=== PATIENT | male | born 1975 | race Caucasian/White ===

== ENCOUNTER 2019-11-06 15:02 | Outpatient (CLI) | payer OTHER ==
[2019-11-06] MEDS ORDERED: [UNRECOGNIZED DRUG - REMARK] (15:39)
== END 2019-11-06 23:59 | disposition home or self-care (01) ==
LOC: STAR 15:02
PROVIDERS: ATTEND Orthopaedic Surgery
DX: Z02.9 Encounter for administrative examinations, unspecified (principal)

== ENCOUNTER 2019-11-18 08:12 | Day surgery (SDC) | payer OTHER ==
[~2019-11-18] VITALS: Ht 175.3 cm; Wt 66.7 kg
[~2019-11-18 08:12] MED LIST: LIDOCAINE/PF 1%-EPI 1:200K, 30 ML ONE; [UNRECOGNIZED DRUG - REMARK]
[2019-11-18 08:46] VITALS: BP 120/85
[2019-11-18] MEDS ORDERED: LACTATED RINGERS 1,000 ML IV SCH (08:49)
[2019-11-18] MEDS ORDERED: FENTANYL PF 250 MCG/5ML ONE (09:00)
[2019-11-18] MEDS ORDERED: MIDAZOLAM 1 MG/ML, 2ML ONE (09:00)
[2019-11-18] MEDS ORDERED: CEFAZOLIN 1,000 MG ONE (09:02)
[2019-11-18] MEDS ORDERED: ROCURONIUM 10MG/ML,5ML ONE (09:02)
[2019-11-18] MEDS ORDERED: ROPIvacaine/PF 0.5%, 30 ML ONE (09:02)
[2019-11-18] MEDS ORDERED: DEXAMETHASONE 4 MG/ML, 1ML ONE (09:02)
[2019-11-18] MEDS ORDERED: LIDOCAINE-MPF 2% ,5ML ONE (09:02)
[2019-11-18] MEDS ORDERED: ONDANSETRON 2MG/ML, 2ML ONE (09:02)
[2019-11-18] MEDS ORDERED: PROPOFOL 10 MG/ML, 20ML ONE (09:02)
[2019-11-18] MEDS ORDERED: CLINDAMYCIN 150 MG/ML, 6ML ONE (09:35)
[2019-11-18] MEDS ORDERED: SUGAMMADEX 200 MG/2 ML IVPush ONE (10:01)
[2019-11-18] MEDS ORDERED: HYDROmorphone 2 MG/ML, 1ML IVPush PRN (11:00)
[2019-11-18] MEDS ORDERED: FENTANYL PF 100 MCG/2ML IV PRN (11:00)
[2019-11-18] MEDS ORDERED: ACETAMINOPHEN 325 MG TABLET PO PRN (11:00)
[2019-11-18] MEDS ORDERED: MEPERIDINE/PF 25MG/ML,1ML IVPush PRN (11:00)
[2019-11-18] MEDS ORDERED: PROMETHAZINE 25 MG/ML, 1ML IV PRN (11:00)
[2019-11-18] MEDS ORDERED: hydrALAzine 20 MG/ML, 1ML IV PRN (11:00)
[2019-11-18] MEDS ORDERED: OXYcodone 5 MG/5 ML ORAL.SOL UDC PO PRN (11:00)
[2019-11-18] MEDS ORDERED: KETOROLAC 30 MG/1 ML ONE (11:21)
[2019-11-18] MEDS ORDERED: KETOROLAC 30 MG/1 ML IVPush ONE (11:30)
== END 2019-11-18 13:25 | disposition home or self-care (01) ==
LOC: OUT 08:12
PROVIDERS: ATTEND Orthopaedic Surgery
DX: S43.431A Superior glenoid labrum lesion of right shoulder, initial encounter (principal); M75.21 Bicipital tendinitis, right shoulder; M75.41 Impingement syndrome of right shoulder; M75.01 Adhesive capsulitis of right shoulder; M65.811 Other synovitis and tenosynovitis, right shoulder; Z79.891 Long term (current) use of opiate analgesic; Z87.891 Personal history of nicotine dependence; X58.XXXA Exposure to other specified factors, initial encounter; Y93.9 Activity, unspecified; Y92.89 Other specified places as the place of occurrence of the external cause; Y99.8 Other external cause status
CPT/HCPCS: 23430; 29822; 29826; 64415; C1713; J0690; J1100; J1885; J2250; J2405; J2704; J2795; J3010; J3490; J7120

== ENCOUNTER → 2020-07-23 | Outpatient (CLI) | payer OTHER ==
[~2020-07-23] MED LIST changes: +CEFAZOLIN 1,000 MG ONE; +DEXAMETHASONE 4 MG/ML, 1ML ONE; +FENTANYL PF 250 MCG/5ML ONE; +GLYCOPYRROLATE 0.2MG/1ML, 5ML ONE; -LIDOCAINE/PF 1%-EPI 1:200K, 30 ML ONE; +MIDAZOLAM 1 MG/ML, 2ML ONE; +NEOSTIGMINE 1 MG/ML, 10ML ONE; +ONDANSETRON 2MG/ML, 2ML ONE; +PROPOFOL 10 MG/ML, 20ML ONE; +ROCURONIUM 10MG/ML,5ML ONE; +SUCCINYLCHOLINE 20 MG/ML, 10ML ONE
== END | disposition home or self-care (01) ==
LOC: STAR 12:12
PROVIDERS: ATTEND Orthopaedic Surgery
DX: Z01.812 Encounter for preprocedural laboratory examination (principal); Z20.828 Contact with and (suspected) exposure to other viral communicable diseases; M25.571 Pain in right ankle and joints of right foot
CPT/HCPCS: 36415; 87635

== ENCOUNTER 2020-07-27 08:08 | Day surgery (SDC) | payer OTHER ==
[~2020-07-27] VITALS: Ht 175.3 cm; Wt 71.4 kg
[~2020-07-27 08:08] MED LIST changes: -CEFAZOLIN 1,000 MG ONE; -DEXAMETHASONE 4 MG/ML, 1ML ONE; -FENTANYL PF 250 MCG/5ML ONE; -GLYCOPYRROLATE 0.2MG/1ML, 5ML ONE; -MIDAZOLAM 1 MG/ML, 2ML ONE; -NEOSTIGMINE 1 MG/ML, 10ML ONE; -ONDANSETRON 2MG/ML, 2ML ONE; -PROPOFOL 10 MG/ML, 20ML ONE; -ROCURONIUM 10MG/ML,5ML ONE; -SUCCINYLCHOLINE 20 MG/ML, 10ML ONE
[2020-07-27 08:30] VITALS: BP 117/80
[2020-07-27] MEDS ORDERED: CHLORHEXIDINE 15 ML UDC MM STA (08:31)
[2020-07-27] MEDS ORDERED: LACTATED RINGERS 1,000 ML IV SCH (08:31)
[2020-07-27] MEDS ORDERED: MUPIROCIN OINT 2%, 22GM ONE (09:27)
[2020-07-27] MEDS ORDERED: LIDOCAINE-MPF 1%, 5ML ONE (09:27)
[2020-07-27] MEDS ORDERED: OXYMETAZOLINE NASAL SPRAY 0.05%,30ML ONE (09:27)
[2020-07-27] MEDS ORDERED: DEXAMETHASONE 4 MG/ML, 1ML ONE (09:52)
[2020-07-27] MEDS ORDERED: ONDANSETRON 2MG/ML, 2ML ONE (09:52)
[2020-07-27] MEDS ORDERED: FENTANYL PF 250 MCG/5ML ONE (09:52)
[2020-07-27] MEDS ORDERED: PROPOFOL 10 MG/ML, 20ML ONE (09:52)
[2020-07-27] MEDS ORDERED: MIDAZOLAM 1 MG/ML, 5ML ONE (09:52)
[2020-07-27] MEDS ORDERED: ROCURONIUM 10 MG/ML,10ML ONE (09:52)
[2020-07-27] MEDS ORDERED: SUCCINYLCHOLINE 20 MG/ML, 10ML ONE (09:52)
[2020-07-27] MEDS ORDERED: MEPERIDINE/PF 25MG/0.5ML IVPush PRN (10:30)
[2020-07-27] MEDS ORDERED: KETOROLAC 30 MG/1 ML IV PRN (10:30)
[2020-07-27] MEDS ORDERED: FENTANYL PF 100 MCG/2ML IV PRN (10:30)
[2020-07-27] MEDS ORDERED: ACETAMINOPHEN 325 MG TABLET PO PRN (10:30)
[2020-07-27] MEDS ORDERED: ALBUTEROL SULFATE 2.5 MG/3 ML NPPB PRN (10:30)
[2020-07-27] MEDS ORDERED: DIAZEPAM 5 MG/ML, 2ML IVPush PRN (10:30)
[2020-07-27] MEDS ORDERED: LABETALOL 5MG/ML, 20ML IV PRN (10:30)
[2020-07-27] MEDS ORDERED: PROMETHAZINE 25 MG/ML, 1ML IV PRN (10:30)
[2020-07-27] MEDS ORDERED: OXYcodone 5 MG/5 ML ORAL.SOL UDC PO PRN (10:30)
[2020-07-27] MEDS ORDERED: HYDROmorphone 2 MG/ML, 1ML IVPush PRN (10:30)
[2020-07-27] MEDS ORDERED: hydrALAzine 20 MG/ML, 1ML IV PRN (10:30)
[2020-07-27] MEDS ORDERED: ACETAMINOPHEN 650 MG/20.3 ML UDC ONE (11:25)
[2020-07-27] MEDS ORDERED: OXYcodone 5 MG/5 ML ORAL.SOL UDC ONE (11:25)
[2020-07-27] MEDS ORDERED: ROPIvacaine/PF 0.5%, 30 ML ONE (12:24)
== END 2020-07-27 13:00 | disposition home or self-care (01) ==
LOC: OUT 08:08
PROVIDERS: ATTEND Orthopaedic Surgery
DX: J34.2 Deviated nasal septum (principal); J34.3 Hypertrophy of nasal turbinates; Z72.89 Other problems related to lifestyle; Z87.891 Personal history of nicotine dependence
CPT/HCPCS: 30140; 30520; J0330; J0690; J1100; J2250; J2405; J2704; J2710; J3010; J7120; J2795

== ENCOUNTER → 2020-09-02 | Outpatient (CLI) | payer OTHER ==
[~2020-09-02] MED LIST changes: +LORA10CA PO
== END | disposition home or self-care (01) ==
LOC: STAR 15:34
PROVIDERS: ATTEND Surgery
DX: Z20.828 Contact with and (suspected) exposure to other viral communicable diseases (principal); M25.571 Pain in right ankle and joints of right foot
CPT/HCPCS: U0003

== ENCOUNTER 2020-09-07 10:00 | Day surgery (SDC) | payer OTHER ==
[~2020-09-07] VITALS: Ht 175.3 cm; Wt 72.0 kg
[2020-09-07] MEDS ORDERED: CHLORHEXIDINE 15 ML UDC MM STA (10:13)
[2020-09-07] MEDS ORDERED: CHLORHEXIDINE 15 ML UDC ONE (10:17)
[2020-09-07 10:29] VITALS: BP 120/83
[2020-09-07] MEDS ORDERED: LACTATED RINGERS 1,000 ML IV SCH (10:30)
[2020-09-07] MEDS ORDERED: BUPIVACAINE/PF 0.25% ONE (10:51)
[2020-09-07] MEDS ORDERED: ROPIvacaine/PF 0.5%, 30 ML ONE (10:51)
[2020-09-07] MEDS ORDERED: PROPOFOL 10 MG/ML, 20ML ONE (11:03)
[2020-09-07] MEDS ORDERED: ONDANSETRON 2MG/ML, 2ML ONE (11:03)
[2020-09-07] MEDS ORDERED: CEFAZOLIN 1,000 MG ONE (11:03)
[2020-09-07] MEDS ORDERED: DEXAMETHASONE 4 MG/ML, 5ML ONE (11:03)
[2020-09-07] MEDS ORDERED: KETOROLAC 30 MG/1 ML ONE (11:03)
[2020-09-07] MEDS ORDERED: MIDAZOLAM 1 MG/ML, 2ML ONE (11:55)
[2020-09-07] MEDS ORDERED: FENTANYL PF 100 MCG/2ML ONE ×2 (12:03→12:58)
[2020-09-07] MEDS ORDERED: HYDROmorphone 1 MG/ML, 1ML INJ IVPush PRN (12:30)
[2020-09-07] MEDS ORDERED: hydrALAzine 20 MG/ML, 1ML IV PRN (12:30)
[2020-09-07] MEDS ORDERED: ACETAMINOPHEN 325 MG TABLET PO PRN (12:30)
[2020-09-07] MEDS ORDERED: LABETALOL 5MG/ML, 20ML IV PRN (12:30)
[2020-09-07] MEDS ORDERED: ONDANSETRON 2MG/ML, 2ML IVPush PRN (12:30)
[2020-09-07] MEDS ORDERED: OXYcodone 5 MG/5 ML ORAL.SOL UDC PO PRN (12:30)
[2020-09-07] MEDS ORDERED: ROPIvacaine/PF 0.5%, 30 ML INFIL ONE (12:33)
[2020-09-07] MEDS ORDERED: ACETAMINOPHEN 650 MG/20.3 ML UDC ONE (12:58)
[2020-09-07] MEDS ORDERED: OXYcodone 5 MG/5 ML ORAL.SOL UDC ONE (12:58)
[2020-09-07] MEDS: FENTANYL PF 100 MCG/2ML IV PRN ×2 (12:59→13:10)
== END 2020-09-07 16:25 | disposition home or self-care (01) ==
LOC: OUT 10:00
PROVIDERS: ATTEND Orthopaedic Surgery
DX: T84.84XA Pain due to internal orthopedic prosthetic devices, implants and grafts, initial encounter (principal); T84.213A Breakdown (mechanical) of internal fixation device of bones of foot and toes, initial encounter; Z79.899 Other long term (current) drug therapy; Y83.8 Other surgical procedures as the cause of abnormal reaction of the patient, or of later complication, without mention of misadventure at the time of the procedure
CPT/HCPCS: 20680; 73600; J0690; J1100; J1885; J2250; J2405; J2704; J2795; J3010; J7120; 76000